=== PATIENT | female | born 1950 | race Caucasian/White ===

== ENCOUNTER 2016-11-02 01:59 | Inpatient (IN) | payer MEDICARE, OTHER ==
[~2016-11-02 01:59] MED LIST: KETO0.02 EACH EYE; LEVO.05 PO; METF500T PO; MONT5CHW5 CHEW
[2016-11-02] MEDS ORDERED: ONDANSETRON HCL 4 MG/2 ML VIAL IVP PRN ×2 (04:30→11:30)
[2016-11-02] MEDS ORDERED: MORPHINE SULFATE 4 MG/ML INJ IV PUSH PRN ×3 (04:30→11:30)
[2016-11-02] MEDS ORDERED: ACETAMINOPHEN/HYDROcodone 325 MG/10 MG TAB PO PRN (04:30)
[2016-11-02] MEDS ORDERED: LACTULOSE SYRUP 20 GM/30 ML CUP PO PRN ×2 (04:30→11:30)
[2016-11-02] MEDS ORDERED: ACETAMINOPHEN/HYDROcodone 325 MG/5 MG TAB PO PRN (04:30)
[2016-11-02] MEDS ORDERED: NALOXONE HCL 0.4 MG/ML AMP IV PUSH PRN ×2 (04:30→11:30)
[2016-11-02] MEDS ORDERED: DEXTROSE 50% IN WATER 50 ML VIAL(D50) IV PRN ×2 (04:30→11:30)
[2016-11-02] MEDS ORDERED: MAGNESIUM HYDROXIDE SUSP 30 ML CUP PO PRN ×2 (04:30→11:30)
[2016-11-02] MEDS ORDERED: GLUCAGON 1 MG/ML VIAL OTHER PRN ×2 (04:30→11:30)
[2016-11-02 05:00] VITALS: BP 134/99; PULSE 79; RESP 18; TEMP 98.6; O2SAT 97
[2016-11-02] MEDS ORDERED: CETI-1 PO (05:27)
[2016-11-02] MEDS ORDERED: MONT10TA4 PO (05:27)
[2016-11-02] MEDS ORDERED: PRIL20TA2 PO ×2 (05:27→05:28)
--- NOTE | 2016-11-02 05:33 | PD ---
Physical Exam Time Seen by Provider: 05:33 Narrative Please refer to previous providers documentation of bradycardia chest frontal patient's current visit. Data Data Last Documented VS Vital Signs Date Time Temp Pulse Resp B/P (MAP) Pulse Ox O2 Delivery O2 Flow Rate FiO2 11/02/16 05:00 98.6 79 18 134/99 (111) 97 Room Air Orders Orders Admit To Inpatient (11/02/16 ) Vital Signs (Adult) Q4H (11/02/16 04:29) Activity Oob Ad Hien (11/02/16 04:29) Diet Npo (11/02/16 Breakfast) Sodium Chlor 0.9% 1000 Ml Inj (Ns 1000 M (11/02/16 04:29) Sodium Chloride 0.9% Flush (Ns Flush) (11/02/16 09:00) Ondansetron Inj (Zofran Inj) (11/02/16 04:30) Basic Metabolic Panel (Bmp) (11/03/16 06:00) Complete Blood Count With Diff (11/03/16 06:00) Pt Request For Service (11/02/16 04:29) Scd Bilateral/Knee High DENISE.BID (11/02/16 04:29) Naloxone Inj (Narcan Inj) (11/02/16 04:30) Magnesium Hydroxide Liq (Milk Of Magnesi (11/02/16 04:30) Lactulose Liq (Lactulose Liq) (11/02/16 04:30) Inpatient Certification (11/02/16 ) Acetamin-Hydrocod 325-5 Mg ([place] 5-325 (11/02/16 04:30) Acetamin-Hydrocod 325-10 Mg ([place] 10-32 (11/02/16 04:30) Morphine Inj (Morphine Inj) (11/02/16 04:30) Bedside Glucose DENISE.CSUGAR (11/02/16 04:29) Blood Glucose Goal (Criteria) (11/02/16 04:29) Hypoglycemia 70 Mg/Dl Or < (11/02/16 04:29) Notify Dr: Other (11/02/16 04:29) Dextrose 50% In Koby (Vial) Inj (D50w (Vi (11/02/16 04:30) Glucagon Inj (Glucagon Inj) (11/02/16 04:30) Insulin Aspart Supplemtl Scale (Novolog (11/02/16 08:00) Admit Order (Ed Use Only) (11/02/16 05:22) Consult Orthopedic (11/02/16 05:23) (Hub Use Only)Inp Phy Cons/Ref (11/02/16 ) MDM Medical Record Reviewed: Yes Supervised Visit with MALATHI: No Differential Diagnosis Fracture versus contusion versus dislocation Narrative Course 66-year-old female, transferred from [facility] for admission to medicine for orthopedic intervention on her left proximal humeral fracture. Abrasion appears without distress. At this time she states her pain is controlled. She is in a sling. The extremity remains neurovascularly intact. Sylvester Edouardan made to Dr. Hensley to inform her the patient is here. Patient is admitted to her service. Diagnosis Primary Impression: Proximal humeral fracture Qualified Codes: S42.202A - Unspecified fracture of upper end of left humerus , initial encounter for closed fracture Admitting Information Admitting Physician Requests: Admit Condition: Stable Trixie Stephens Nov 02, 2016 05:33
[2016-11-02] MEDS: SODIUM CHLOR 0.9% 1000 ML INJ 1,000 ML IV SCH ×2 (05:59→13:20)
[2016-11-02] MEDS ORDERED: VANCOMYCIN HCL 1000 MG VIAL ONE (06:54)
[2016-11-02] MEDS ORDERED: ceFAZolin 2 GM PREMIX 50 ML ONE (06:54)
[2016-11-02] MEDS ORDERED: GENTAMICIN SULFATE 80 MG/2 ML VIAL ONE (06:54)
[2016-11-02] MEDS ORDERED: SODIUM CHLOR 0.9% 250 ML INJ 250 ML ONE (06:56)
[2016-11-02] MEDS ORDERED: INSULIN ASPART SUPPLEMENTAL SCALE SQ SCH (08:00)
[2016-11-02] MEDS ORDERED: SODIUM CHLORIDE 0.9% FLUSH 10 ML FLUSH IV FLUSH SCH ×2 (09:00→21:00)
[2016-11-02] MEDS ORDERED: FAMOTIDINE 20 MG/2 ML VIAL ONE (09:02)
[2016-11-02] MEDS ORDERED: ACETAMINOPHEN 1000 MG/100 ML 100 ML IV ONE (09:02)
--- NOTE | 2016-11-02 11:21 | HHI.HP ---
HPI Service [facility] Primary [facility] Physician Non-Staff MANPRET Admission Diagnosis LUE fracture Diagnoses: (1) Proximal humeral fracture Diagnosis: Principal (2) GERD (gastroesophageal reflux disease) Diagnosis: Secondary (3) Hiatal hernia Diagnosis: Secondary (4) Fibromyalgia Diagnosis: Secondary (5) Fall Diagnosis: Principal (6) Diabetes Diagnosis: Secondary (7) Hypothyroidism Diagnosis: Secondary Chief Complaint: Fall Travel History International Travel<30 Days: No Contact w/Intl Traveler <30 Da: No Traveled to Known Affected Are: No History of Present Illness Patient is a 66-year-old female. Who was walking by her house and tripped on a curb in the street following forward hard onto her left shoulder and upper arm area. Patient states that she felt a pop sensation in her left upper arm. She was not able to get up due to pain in her arm. Hit her head on the left side but she denied any loss of consciousness Found to have a left humeral fracture and will undergo surgery later today with orthopedic surgery Therefore patient was transferred from the [place] emergency room to the main hospital here at [place] Review of Systems Constitutional: DENIES: Diaphoretic episodes, Fatigue, Fever, Weight gain, Weight loss, Chills, Dizziness, Change in appetite Endocrine: DENIES: Abnorml menstrual pattern, Heat/cold intolerance, Polydipsia , Polyuria Eyes: DENIES: Blurred vision, Diplopia, Eye inflammation, Eye pain, Vision loss Ears, nose, mouth, throat: DENIES: Tinnitus, Hearing loss, Vertigo, Nasal discharge Respiratory: DENIES: Apneas, Cough, Snoring, Wheezing Cardiovascular: DENIES: Chest pain, Palpitations, Syncope, Dyspnea on Exertion Gastrointestinal: DENIES: Abdominal pain, Black stools, Bloody stools Genitourinary: DENIES: Abnormal vaginal bleeding, Dysmenorrhea Musculoskeletal: COMPLAINS OF: Joint pain, Muscle aches, DENIES: Stiffness, Joint Swelling, Back pain Integumentary: DENIES: Abnormal pigmentation, Pruritus, Rash, Nail changes Hematologic/lymphatic: DENIES: Bruising, Lymphadenopathy Immunologic/allergic: DENIES: Eczema, Urticaria Neurologic: DENIES: Abnormal gait, Headache, Localized weakness, Paresthesias, Seizures, Speech Problems, Tremor Psychiatric: DENIES: Anxiety, Confusion, Mood changes, Depression Past Family Social History Past Medical History Fibromyalgia treated with trigger point injections no narcotics GERD Hiatal hernia History of ruptured ovarian cyst Diabetes Asthma allergies hypothyroidism Past Surgical History History of breast biopsy negative benign History of exploratory surgery for a ruptured ovarian cyst Bilateral bunionectomies Reported Medications Reported Meds & Active Scripts Active Reported Prilosec (Omeprazole Magnesium) 20 Mg Tab 20 Mg PO DAILY Prilosec (Omeprazole Magnesium) 20 Mg Tab 20 Mg PO Zyrtec (Cetirizine HCl) 10 Mg Tablet 10 Mg PO DAILY Montelukast (Montelukast Sodium) 10 Mg Tab 10 Mg PO HS Metformin (Metformin HCl) 500 Mg Tab 500 Mg PO BIDPC With meals ZyrTEC Itchy Eye Opth Drops (Ketotifen Opth Drops) 0.025% Drops 1 Drop EACH EYE BID PRN Synthroid (Levothyroxine Sodium) 50 Mcg Tab 50 Mcg PO DAILY Allergies: Coded Allergies: No Known Allergies (Unverified , 11/01/16) Active Ordered Medications Current Medications Sodium Chloride 1,000 ml @ 100 mls/hr Q10H IV Last administered on 11/02/16t 05:59; Start 11/02/16 at 04:29 Sodium Chloride (NS Flush) 2 ml BID IV FLUSH ; Start 11/02/16 at 09:00 Ondansetron HCl (Zofran Inj) 4 mg Q6H PRN IVP NAUSEA OR VOMITING; Start at 04:30 Naloxone HCl (Narcan Inj) 0.4 mg UNSCH PRN IV PUSH SEE LABEL COMMENTS; Start at 04:30 Magnesium Hydroxide (Milk Of Magnesia Liq) 30 ml Q12H PRN PO MILD - MODERATE CONSTIPATION; Start 11/02/16 at 04:30 Lactulose (Lactulose Liq) 30 ml DAILY PRN PO SEVERE CONSITIPATION; Start at 04:30 Acetaminophen/ Hydrocodone Bitart ([place] 5-325 Mg) 1 tab Q6H PRN PO pain 1-5; Start 11/02/16 at 04:30 Acetaminophen/ Hydrocodone Bitart ([place] 10-325 Mg) 1 tab Q6H PRN PO pain 6-10 ; Start 11/02/16 at 04:30 Morphine Sulfate (Morphine Inj) 2 mg Q3H PRN IV PUSH breakthrough Last administered on 11/02/16t 05:57; Start 11/02/16 at 04:30 Dextrose (D50w (Vial) Inj) 50 ml UNSCH PRN IV HYPOGLYCEMIA-SEE COMMENTS; Start 11/02/16 at 04:30 Glucagon (Glucagon Inj) 1 mg UNSCH PRN OTHER HYPOGLYCEMIA-SEE COMMENTS; Start 11/02/16 at 04:30 Insulin Aspart (NovoLOG SUPPLEMENTAL SCALE) 1 ACHS SLIDING SCALE SQ ; Start at 08:00 Vancomycin HCl (Vancomycin Inj) 1,000 mg STK-MED ONCE .ROUTE ; Start 11/02/16 at 06:54; Stop 11/02/16 at 06:55; Status DC Gentamicin Sulfate (Gentamicin Inj) 240 mg STK-MED ONCE .ROUTE ; Start 11/02/16 at 06:54; Stop 11/02/16 at 06:55; Status DC Cefazolin Sodium/ Dextrose 50 ml @ As Directed STK-MED ONCE .ROUTE ; Start 11/02 at 06:54; Stop 11/02/16 at 06:55; Status DC Sodium Chloride 250 ml @ As Directed STK-MED ONCE .ROUTE ; Start 11/02/16 at 06 :56; Stop 11/02/16 at 06:57; Status DC Acetaminophen 100 ml @ As Directed STK-MED ONCE IV ; Start 11/02/16 at 09:02; Stop 11/02/16 at 09:03; Status DC Famotidine (Pepcid Inj) 20 mg STK-MED ONCE .ROUTE ; Start 11/02/16 at 09:02; Stop 11/02/16 at 09:03; Status DC Family History Hypertension hypothyroidism diabetes Social History Denies any tobacco alcohol or illicits Physical Exam Vital Signs Vital Signs Date Time Temp Pulse Resp B/P (MAP) Pulse Ox O2 Delivery O2 Flow Rate FiO2 11/02/16 05:00 98.6 79 18 134/99 (111) 97 Room Air Physical Exam GENERAL: This is a well-nourished, well-developed patient, in no apparent distress. SKIN: No rashes, ecchymoses or lesions. Cool and dry. HEAD: Atraumatic. Normocephalic. No temporal or scalp tenderness. EYES: Pupils equal round and reactive. Extraocular motions intact. No scleral icterus. No injection or drainage. ENT: Nose without bleeding, purulent drainage or septal hematoma. Throat without erythema, tonsillar hypertrophy or exudate. Uvula midline. Airway patent. Tongue is midline NECK: Trachea midline. No JVD or lymphadenopathy. Supple, nontender, no meningeal signs. CARDIOVASCULAR: Regular rate and rhythm without murmurs, gallops, or rubs. S1 and S2 no S3-S4 no heave or thrill or rub or gallop RESPIRATORY: Clear to auscultation. Breath sounds equal bilaterally. No wheezes , rales, or rhonchi. GASTROINTESTINAL: Abdomen soft, non-tender, nondistended. No hepato-splenomegaly , or palpable masses. No guarding. MUSCULOSKELETAL: Extremities without clubbing, cyanosis, or edema. No joint tenderness, effusion, or edema noted. No calf tenderness. Negative Homans sign bilaterally. Left upper extremity is in a sling decreased range of motion secondary to pain NEUROLOGICAL: Awake and alert. Cranial nerves II through XII intact. Motor and sensory grossly within normal limits. Five out of 5 muscle strength in all muscle groups. Normal speech. Insight and judgment is good Mood and behaviors appropriate Laboratory Sodium 142 potassium is 4.7 chloride is 105 carbon dioxide 28.0 anion gap is 9 BUN is 14 creatinine 0.90 estimated GFR 63 random glucose is 110 calcium is 9.0 total bilirubin 0.2 AST is 30 ALT 31 alk phosphatase 90 total protein 7.1 albumin is 3.3 White blood cell count is 14.0 Hemoglobin is 12.9 Hematocrit is 39.5 Platelet count is 260 Imaging Chest x-ray shows acute left proximal humeral fracture No acute disease Left elbow shows no acute abnormality limited study. Cervical spine CT shows no fracture or dislocation multilevel degenerative changes Head CT shows normal examination Left knee x-ray shows unremarkable limited examination of the left knee Left shoulder x-ray shows a left proximal humeral fracture which shows an acute comminuted fracture involving the proximal humerus this extends through the greater tuberosity There is approximately 1 cm of separation of this fracture fragment from the remaining proximal humerus Caprini VTE Risk Assessment Caprini VTE Risk Assessment: Mod/High Risk (score >= 2) Caprini Risk Assessment Model Point Value = 1 Point Value = 2 Point Value = 3 Point Value = 5 Age 41-60 Minor surgery BMI > 25 kg/m2 Swollen legs Varicose veins or History of unexplained or recurrent spontaneous Oral contraceptives or hormone replacement Sepsis (< 1 month) Serious lung disease, including pneumonia (< 1 month) Abnormal pulmonary function Acute myocardial infarction Congestive heart failure (< 1 month) History of inflammatory bowel disease Medical patient at bed rest Age 61-74 Arthroscopic surgery Major open surgery (> 45 min) Laparoscopic surgery (> 45 min) Malignancy Confined to bed (> 72 hours) Immobilizing plaster cast Central venous access Age >= 75 History of VTE Family history of VTE Factor V Leiden Prothrombin [id number] Lupus anticoagulant Anticardiolipin antibodies Elevated serum homocysteine Heparin-induced thrombocytopenia Other congenital or acquired thrombophilia Stroke (< 1 month) Elective arthroplasty Hip, pelvis, or leg fracture Acute spinal cord injury (< 1 month) Prophylaxis Regimen Total Risk Factor Score Risk Level Prophylaxis Regimen 0-1 Low Early ambulation 2 Moderate Order ONE of the following: *Sequential Compression Device (SCD) *Heparin 5000 units SQ BID 3-4 Higher Order ONE of the following medications: *Heparin 5000 units SQ TID *Enoxaparin/Lovenox 40 mg SQ daily (WT < 150 kg, CrCl > 30 mL/min) *Enoxaparin/Lovenox 30 mg SQ daily (WT < 150 kg, CrCl > 10-29 mL/min) *Enoxaparin/Lovenox 30 mg SQ BID (WT < 150 kg, CrCl > 30 mL/min) AND/OR *Sequential Compression Device (SCD) 5 or more Highest Order ONE of the following medications: *Heparin 5000 units SQ TID (Preferred with Epidurals) *Enoxaparin/Lovenox 40 mg SQ daily (WT < 150 kg, CrCl > 30 mL/min) *Enoxaparin/Lovenox 30 mg SQ daily (WT < 150 kg, CrCl > 10-29 mL/min) *Enoxaparin/Lovenox 30 mg SQ BID (WT < 150 kg, CrCl > 30 mL/min) AND *Sequential Compression Device (SCD) Assessment and Plan Problem List: (1) Proximal humeral fracture ICD Code: S42.209A - Unspecified fracture of upper end of unspecified humerus, initial encounter for closed fracture Status: Acute (2) Hiatal hernia ICD Code: K44.9 - Diaphragmatic hernia without obstruction or gangrene (3) Fibromyalgia ICD Code: M79.7 - Fibromyalgia (4) GERD (gastroesophageal reflux disease) ICD Code: K21.9 - Gastro-esophageal reflux disease without esophagitis (5) Fall ICD Code: W19.XXXA - Unspecified fall, initial encounter (6) Diabetes ICD Code: E11.9 - Type 2 diabetes mellitus without complications (7) Hypothyroidism ICD Code: E03.9 - Hypothyroidism, unspecified Assessment and Plan Left proximal humeral comminuted fracture will require surgery with orthopedics scheduled later today GERD and hiatal hernia continue on PPI Diabetes mellitus continue on her Glucophage and Accu-Cheks before meals and at bedtime with sliding scale coverage Fibromyalgia pain control as needed and anxiety medication as needed Hypothyroidism continue Synthroid Asthma continue on her home medications Pain control as needed Benadryl as needed Will need physical therapy and occupational therapy. Continue on DVT and GI prophylaxis Code Status Full code Discussed Condition With Patient and RN's Physician Certification 2 Midnight Certification Type: Admission for Inpatient Services Order for Inpatient Services The services are ordered in accordance with Medicare regulations or non- Medicare payer requirements, as applicable. In the case of services not specified as inpatient-only, they are appropriately provided as inpatient services in accordance with the 2-midnight benchmark. Estimated LOS (days): 2 2 days is the estimated time the patient will need to remain in the hospital, assuming treatment plan goals are met and no additional complications. Post-Hospital Plan: Not yet determined Problem Qualifiers (1) Proximal humeral fracture: Qualified Codes: S42.202A - Unspecified fracture of upper end of left humerus, initial encounter for closed fracture Yohannes Cordova DO Nov 02, 2016 11:21
[2016-11-02] MEDS ORDERED: ACETAMINOPHEN 325 MG TAB PO PRN ×2 (11:30)
[2016-11-02] MEDS ORDERED: SODIUM CHLORIDE 0.9% FLUSH 10 ML FLUSH IV FLUSH PRN (11:30)
[2016-11-02] MEDS ORDERED: PROCHLORPERAZINE 25 MG SUPP RECTAL PRN (11:30)
[2016-11-02] MEDS ORDERED: oxyCODONE/ACETAMINOPHEN 5 MG/325 MG TAB PO PRN (11:30)
[2016-11-02] MEDS ORDERED: ZOLPIDEM TARTRATE 5 MG TAB PO PRN (11:30)
[2016-11-02] MEDS ORDERED: BISACODYL 10 MG SUPP RECTAL PRN (11:30)
[2016-11-02] MEDS ORDERED: SENNOSIDES 8.6 MG TAB PO PRN (11:30)
[2016-11-02] MEDS ORDERED: oxyCODONE/ACETAMINOPHEN 10 MG/325 MG TAB PO PRN (11:30)
[2016-11-02] MEDS ORDERED: NEOSTIGMINE 3 MG/3 ML SYR IV ONE (12:00)
[2016-11-02] MEDS ORDERED: DEXAMETHASONE SOD PHOS 4 MG/ML VIAL IV ONE (12:00)
[2016-11-02] MEDS ORDERED: ONDANSETRON HCL 4 MG/2 ML VIAL IV PUSH ONE (12:00)
[2016-11-02] MEDS ORDERED: NORMOSOL R INJ 1,000 ML IV ONE (12:00)
[2016-11-02] MEDS ORDERED: MIDAZOLAM HCL 2 MG/2 ML VIAL IV ONE (12:00)
[2016-11-02] MEDS ORDERED: GLYCOPYRROLATE 0.2 MG/ML VIAL IV ONE (12:00)
[2016-11-02] MEDS ORDERED: PROPOFOL 200 MG/20 ML AMP IV ONE (12:00)
--- NOTE | 2016-11-02 12:17 | MB ---
cc: KILEY QUISPE DATE OF ADMISSION DATE OF CONSULTATION 11/02/2016 REASON FOR CONSULTATION Left proximal humerus fracture. HISTORY Nimo is a 66-year-old female who had a fall. She was leaving a friend's house after dinner. She lost her balance. She started stumbling forehead. She subsequently landed with her left shoulder against her car. She had immediate left shoulder pain. Her pain is worse with movement. She presented to the [facility]. X-rays revealed a comminuted left proximal humerus fracture. She is currently awake and alert in the emergency department. Her only complaint is her left shoulder. She does have small abrasions and a small bruise on her anterior knee. The pain is worse with movement. She denies visual changes, dizziness, syncope or loss of consciousness. PAST MEDICAL HISTORY ILLNESSES 1. Fibromyalgia. 2. Reflux. 3. Hiatal hernia. 4. Hypothyroidism. 5. Diabetes. ALLERGIES No known drug allergies. MEDICATIONS 1. Metformin. 2. Montelukast. 3. Zyrtec. 4. Synthroid. SOCIAL HISTORY The patient denies alcohol tobacco or drug use. FAMILY HISTORY Noncontributory. REVIEW OF SYSTEMS The patient denies headache, visual changes, neck pain, chest pain, shortness of breath, abdominal pain, nausea, vomiting, recent weight loss or numbness or tingling of extremities. She complains of left shoulder pain. The pain is worse with movement. PHYSICAL EXAMINATION GENERAL: The patient is a pleasant 66-year-old female in no acute distress. She is awake and alert. She is alert and oriented x3. VITAL SIGNS: Temperature 98.7, pulse 80, respirations 16, blood pressure 172/97, O2 sat is 97% on room air. HEAD: The patient is normocephalic. Pupils are equal. NECK: Soft, nontender. Trachea is midline. ABDOMEN: Soft, nontender, nondistended. EXTREMITIES: Examination of the left arm reveals mild swelling around her shoulder. Skin is intact. She has minimal tenderness in her elbow, wrist or fingers. Sensation is intact in radial, ulnar and median nerve distributions. She has good capillary refill in all fingers. Examination of right arm reveals no pain with shoulder, elbow or wrist motion. Skin is intact. Radial pulses palpable. Sensation is intact. Examination of the bilateral lower extremities reveals no significant pain with hip, knee or ankle motion. She does have superficial abrasions on her anterior knees. She has a small bruise on her left knee. Sensation is intact to both feet. Dorsalis pedis pulses are palpable. X-RAYS X-rays of the left shoulder are reviewed. X-rays reveal a partially displaced, three part proximal humerus fracture. IMPRESSION 1. Hypothyroidism. 2. Diabetes. 3. Left proximal humerus fracture. PLAN The treatment options were discussed with the patient including surgical and nonsurgical options. I discussed the risks and benefits of each, the risks of surgery including bleeding, infection, injury to arteries, nerves and blood vessels, avascular necrosis, need for shoulder replacement, painful hardware, shoulder stiffness, loss of motion as well as medical complications including blood clot, stroke, heart attack and were discussed. All questions were answered. I will plan on surgery today. A mid-level provider in my office (nurse practitioner or physician election assistant) may see this patient on follow-up visits and continue to implement the objectives of this plan including: Starting or adjusting medications, injections , cast application, orthotics, brace application, physical therapy, radiological studies (including x-ray, MRI, CT, ultrasound, bone scan), vascular studies, neurologic studies, specialist consultation, and proceeding with surgical management, as appropriate. MD OMARI Drake/VINI /11:21 AM /11:41 AM RAIN
[2016-11-02] MEDS ORDERED: SODIUM CHLORIDE 0.9% FLUSH 5 ML FLUSH IVF PRN (12:30)
--- NOTE | 2016-11-02 12:30 | PD.OP ---
cc: Km Irving MD Operative Report Date of Surgery: Nov 02, 2016 Preoperative Diagnosis: Displaced left proximal humerus fracture Postoperative Diagnosis: Procedure: Open reduction internal fixation left proximal humerus fracture Anesthesia: Gen. Surgeon: Km Irving Tableau Architect(s): LEO Pinto PA-C The surgical procedure was assisted by my physician desk assistant. My P.A. presence was necessary throughout this case for the manipulation and positioning of the surgical extremity. My P.A. was assisting me throughout the duration of this procedure. The skill set of a physician desk assistant was medically necessary to complete this procedure. During the surgical case the optometric tech was working at the back table and the physician desk assistant was directly assisting me. Operation and Findings: Patient was seen and evaluated preoperatively. Patient was found to have a displaced proximal humerus fracture. The risks and benefits of surgical and nonsurgical options were discussed in detail and informed consent was obtained for surgery. Patient was brought to the operating room and placed on or table. IV sedation and GETA were administered by anesthesiologist. Antibiotics were given prior to incision. Operative arm and shoulder were prepped with alcohol followed by Hibiclens and draped usual sterile fashion. Timeout procedure was performed. Procedure began with a 5 inch incision over the anterior shoulder. Cephalic vein was identified. A deltopectoral approach was utilized. The fracture was now visualized. Soft tissue was retracted. A #5 FiberWire suture was placed into the rotator rotator cuff and greater tuberosity. A second #5 FiberWire suture was placed into the lesser tuberosity and subscapularis tendon. Attention was now turned to reduction. Gentle traction was applied. The humeral shaft was reduced to the humeral head. Fracture was manipulated to achieve excellent reduction. Multiplanar fluoroscopy confirmed well aligned fracture. Multiple K wires were used to hold provisional fixation. A Synthes proximal humerus plate was selected. Plate was provisionally held in place K wires. 3.5 cortical screws were used to compress plate to bone. Fluoroscopy confirmed appropriate plate placement and fracture reduction. Multiple locking screws were now placed in the humeral head. Screws were predrilled and premeasured for appropriate length. Care was taken not to penetrate the articular surface. Additional screws were placed in the humeral shaft. The FiberWire suture were passed through the holes of the plate and sutured to the plate for additional stability. Final fluoroscopy revealed well aligned fracture with well-placed hardware. Wound was thoroughly irrigated. Fascia was closed with #1 Vicryl, subcutaneous tissues closed with 3-0 Vicryl, and skin was closed with hamilton. Sterile dressings were applied. Patient was placed into a sling. Patient was awakened and transferred to recovery in stable condition. Needle and sponge counts were correct. Km Irving MD Nov 02, 2016 12:29
[2016-11-02] MEDS ORDERED: HYDR-3583 PO (12:55)
[2016-11-02] MEDS ORDERED: ERGO1CAP30 PO (12:55)
[2016-11-02] MEDS ORDERED: CALCTAB19 PO (12:55)
[2016-11-02] MEDS ORDERED: DO NOT ADM ANY ANTICOAGULANT DRUGS PRN (12:55)
[2016-11-02] MEDS ORDERED: OLOPATADINE HCL 0.1% OPHT SOLN 5 ML BTL EACH EYE PRN (13:00)
--- NOTE | 2016-11-02 13:04 | RADRPT ---
EXAM DATE/TIME: 11/02/2016 12:17 [facility] COMPARISON: SHOULDER LEFT LTD (2VWS), November 01, 2016, 23:36. INDICATIONS : Post-op ORIF left proximal humerus fracture. MEDICAL HISTORY : None. SURGICAL HISTORY : None. ENCOUNTER: Subsequent ACUITY: 2 days PAIN SCORE: Non-responsive. LOCATION: Left upper extremity FINDINGS: 7 spot fluoroscopic images obtained in the operating room during a procedure demonstrate placement of a lateral humeral side plate with multiple interlocking screws. There is improved anatomic alignment . CONCLUSION: Improved alignment following left proximal humerus ORIF. Tariq Yi MD on November 02, 2016 at 13:01 Board Certified Radiologist. This report was verified electronically.
[2016-11-02] MEDS ORDERED: *morphine SULFATE 8 MG/ML PERIprocedure ONLY ONE (13:06)
[2016-11-02] MEDS: INSULIN ASPART SUPPLEMENTAL SCALE SQ SCH ×3 (13:30→21:00)
[2016-11-02] MEDS ORDERED: ERGOCALCIFEROL (VIT D2) 50,000 UNIT CAP PO SCH (14:00)
[2016-11-02] MEDS: ACETAMINOPHEN/HYDROcodone 325 MG/10 MG TAB PO PRN ×2 (14:56→20:51)
[2016-11-02 16:00] VITALS: BP 124/76; PULSE 72; RESP 18; TEMP 95.9; O2SAT 100
[2016-11-02] MEDS: CALCIUM/VITAMIN D 250 MG/125 U TAB PO SCH ×2 (16:47→21:07)
[2016-11-02] MEDS: metFORMIN HCL 500 MG TAB PO SCH (16:47)
[2016-11-02 20:00] VITALS: BP 132/69; PULSE 68; RESP 17; TEMP 97.6; O2SAT 93
[2016-11-02] MEDS: ceFAZolin 2 GM PREMIX 50 ML IV SCH (20:50)
[2016-11-02] MEDS: MONTELUKAST SODIUM 10 MG TAB PO SCH (20:51)
[2016-11-02] MEDS: DOCUSATE SODIUM 50 MG/SENNA 8.6 MG TAB PO SCH (20:52)
[2016-11-02] MEDS: SODIUM CHLORIDE 0.9% FLUSH 5 ML FLUSH IVF SCH (20:53)
[2016-11-02] MEDS: MORPHINE SULFATE 4 MG/ML INJ IV PUSH PRN (22:43)
[2016-11-03] VITALS (8 sets, daily range): BP systolic 111–135; BP diastolic 60–66; PULSE 61–108; RESP 16–18; TEMP 96.9–100.3; O2SAT 91–96
[2016-11-03] MEDS: ACETAMINOPHEN/HYDROcodone 325 MG/10 MG TAB PO PRN ×5 (00:57→20:56)
[2016-11-03] MEDS: SODIUM CHLOR 0.9% 1000 ML INJ 1,000 ML IV SCH ×3 (00:58→20:29)
[2016-11-03] MEDS: ceFAZolin 2 GM PREMIX 50 ML IV SCH ×2 (04:21→10:53)
[2016-11-03] MEDS: LEVOTHYROXINE SODIUM 50 MCG TAB PO SCH (04:21)
[2016-11-03] MEDS: MORPHINE SULFATE 4 MG/ML INJ IV PUSH PRN ×2 (06:36→19:12)
--- NOTE | 2016-11-03 06:43 | PD.ORT.PN ---
Subjective Subjective Remarks Pain controlled. Doing well overnight Objective Vitals Vital Signs Date Time Temp Pulse Resp B/P (MAP) Pulse Ox O2 Delivery O2 Flow Rate FiO2 11/03/16 04:00 96.9 80 17 119/63 (81) 94 11/03/16 00:00 97.2 61 17 128/64 (85) 94 11/02/16 20:40 Nasal Cannula 2.00 11/02/16 20:00 97.6 68 17 132/69 (90) 93 11/02/16 16:00 95.9 72 18 124/76 (92) 100 11/02/16 13:30 97.9 79 12 145/76 (99) 100 Nasal Cannula 2 11/02/16 13:15 75 12 141/69 (93) 99 Nasal Cannula 2 11/02/16 13:00 77 14 174/83 (113) 99 Nasal Cannula 2 11/02/16 12:57 98.5 76 14 170/81 (110) 99 Nasal Cannula 2 I/O 11/02/16 11/02/16 11/02/16 11/03/16 11/03/16 11/03/16 07:00 15:00 23:00 07:00 15:00 23:00 Intake Total 1100 ml 530 ml 240 ml Output Total 50 ml 1750 ml Balance 1050 ml 530 ml -1510 ml Intake Oral 480 ml 240 ml IV Total 50 ml Other 1100 ml Output Urine Total 1750 ml Estimated Blood Loss 50 ml Imaging Last 72 hours Impressions Shoulder X-Ray 11/02/16 0000 Signed Impressions: Service Date/Time: Wednesday, November 02, 2016 12:17 - CONCLUSION: Improved alignment following left proximal humerus ORIF. Tariq Yi MD Objective Remarks Left upper extremity: Clean dry dressings intact. Sling and swath in place. Distally intact sensation over the radial ulnar and median nerve distributions with good capillary refills. Full extension and flexion of all fingers Assessment & Plan Assessment and Plan Left proximal humerus fracture ORIF POD 1 Nonweightbearing left upper extremity Sling and swath at all times except for physical therapy. PT to work on pendulum swings only also education for them to do on her own Case management for home health dressing changes Discharged home today Follow-up with Dr. Irving or PA in 2 weeks Jose Diaz Jr. Nov 03, 2016 06:43
--- NOTE | 2016-11-03 06:44 | HHI.FF ---
Face to Face Verification Diagnosis: (1) Proximal humeral fracture Occupational Therapy Left UE Weight Bearing: Non WB Left UE Range of Motion: Pendular Nursing Dressing Changes: Daily dressing change, Xeroform, Coverderm/Primapore I have seen patient Nimo Coleman on 11/03/16. My clinical findings support the need for the requested home health care services because: Limited ability to care for self I certify that my clinical findings support that this patient is homebound because: Post-op weakness Jose Diaz Jr. Nov 03, 2016 06:44
[2016-11-03 07:54] LABS: AUTOMATED NEUTROPHIL # 7.8 TH/MM3 (1.8-7.7); BASOPHIL # 0.1 TH/MM3 (0-0.2); BASOPHIL % 0.4 % (0.0-2.0); EOSINOPHIL # 0.1 TH/MM3 (0-0.4); EOSINOPHIL % 0.8 % (0.0-4.0); HEMATOCRIT 32.1 % (35.0-46.0); HEMO FLAGS DIFF FINAL; LYMPH % 24.2 % (9.0-44.0); LYMPHOCYTE # 2.8 TH/MM3 (1.0-4.8); MEAN CORPUSCULAR HEMOGLOBIN 28.2 PG (27.0-34.0); MEAN CORPUSCULAR HGB CONC 33.1 % (32.0-36.0); MONO % 7.7 % (0.0-8.0); NEUT % 66.9 % (16.0-70.0); PLATELET COUNT 198 TH/MM3 (150-450); RED BLOOD COUNT 3.77 MIL/MM3 (4.00-5.30); RED CELL DISTRIBUTION WIDTH 13.8 % (11.6-17.2); WHITE BLOOD COUNT 11.6 TH/MM3 (4.0-11.0)
[2016-11-03] MEDS: INSULIN ASPART SUPPLEMENTAL SCALE SQ SCH ×4 (08:00→21:00)
[2016-11-03] MEDS: PANTOPRAZOLE SOD 20 MG DELAYED RELEASE TAB PO SCH (08:15)
[2016-11-03] MEDS: CHOLECALCIFEROL (VIT D3) 1000 UNIT TAB PO SCH (08:15)
[2016-11-03] MEDS: CALCIUM/VITAMIN D 250 MG/125 U TAB PO SCH ×3 (08:15→17:38)
[2016-11-03] MEDS: DOCUSATE SODIUM 50 MG/SENNA 8.6 MG TAB PO SCH ×2 (08:15→20:57)
[2016-11-03] MEDS: SODIUM CHLORIDE 0.9% FLUSH 5 ML FLUSH IVF SCH ×2 (08:15→20:56)
[2016-11-03] MEDS: CETIRIZINE HCL 10 MG TAB PO SCH (08:15)
[2016-11-03] MEDS: metFORMIN HCL 500 MG TAB PO SCH ×2 (08:15→17:38)
[2016-11-03 08:26] LABS: ANION GAP 5 MEQ/L (5-15); AST (GOT) 22 U/L (15-37); BICARBONATE 28.5 MEQ/L (21.0-32.0); BLOOD UREA NITROGEN 12 MG/DL (7-18); CHLORIDE 101 MEQ/L (98-107); GLOMERULAR FILTRATION RATE 71 ML/MIN (>89); POTASSIUM 4.3 MEQ/L (3.5-5.1); SODIUM (NA) 134 MEQ/L (136-145)
[2016-11-03 08:27] LABS: ALT (GPT) 24 U/L (10-53)
[2016-11-03 08:36] LABS: ALKALINE PHOSPHATASE 78 U/L (45-117); FREE T4 1.28 NG/DL (0.76-1.46); TOTAL BILIRUBIN ADULT 0.3 MG/DL (0.2-1.0)
--- NOTE | 2016-11-03 11:27 | HHI.PR ---
Subjective Remarks Patient is a 66-year-old female. Who was walking by her house and tripped on a curb in the street following forward hard onto her left shoulder and upper arm area. Patient states that she felt a pop sensation in her left upper arm. She was not able to get up due to pain in her arm. Hit her head on the left side but she denied any loss of consciousness Found to have a left humeral fracture and will undergo surgery later today with orthopedic surgery Therefore patient was transferred from the [place] emergency room to the main hospital here at [place] 11-03 patient had surgery on her left humerus yesterday Having nausea and vomiting today. We'll monitor today. We'll hopefully feel better and can hopefully be discharged later today or tomorrow A.m. labs Objective Vitals Vital Signs Date Time Temp Pulse Resp B/P (MAP) Pulse Ox O2 Delivery O2 Flow Rate FiO2 11/03/16 08:00 98.2 84 18 111/63 (79) 92 11/03/16 04:00 96.9 80 17 119/63 (81) 94 11/03/16 00:00 97.2 61 17 128/64 (85) 94 11/02/16 20:40 Nasal Cannula 2.00 11/02/16 20:00 97.6 68 17 132/69 (90) 93 11/02/16 16:00 95.9 72 18 124/76 (92) 100 11/02/16 13:30 97.9 79 12 145/76 (99) 100 Nasal Cannula 2 11/02/16 13:15 75 12 141/69 (93) 99 Nasal Cannula 2 11/02/16 13:00 77 14 174/83 (113) 99 Nasal Cannula 2 11/02/16 12:57 98.5 76 14 170/81 (110) 99 Nasal Cannula 2 I/O 11/02/16 11/02/16 11/02/16 11/03/16 11/03/16 11/03/16 07:00 15:00 23:00 07:00 15:00 23:00 Intake Total 1100 ml 530 ml 1041 ml Output Total 50 ml 1750 ml Balance 1050 ml 530 ml -709 ml Intake Oral 480 ml 240 ml IV Total 50 ml 801 ml Other 1100 ml Output Urine Total 1750 ml Estimated Blood Loss 50 ml Result Diagram: 11/03/16 0649 11/03/1649 Other Results Item Value Date Time White Blood Count 14.0 TH/MM3 H 11/02/16 0330 Platelet Count 260 TH/MM3 11/02/16 0330 Hemoglobin 12.9 GM/DL 11/02/16 0330 Hematocrit 39.5 % 11/02/16 0330 Sodium Level 142 MEQ/L 11/02/16 0330 Potassium Level 4.7 MEQ/L 11/02/16 0330 Chloride Level 105 MEQ/L 11/02/16 0330 Carbon Dioxide Level 28.0 MEQ/L 11/02/16 0330 Anion Gap 9 MEQ/L 11/02/16 0330 Blood Urea Nitrogen 14 MG/DL 11/02/16 0330 Creatinine 0.90 MG/DL 11/02/16 0330 Estimat Glomerular Filtration Rate 63 ML/MIN L 11/02/16 0330 Random Glucose 110 MG/DL H 11/02/16 0330 Calcium Level 9.0 MG/DL 11/02/16 0330 Total Bilirubin 0.2 MG/DL 11/02/16 0330 Aspartate Amino Transf (AST/SGOT) 30 U/L 11/02/16 0330 Alanine Aminotransferase (ALT/SGPT) 31 U/L 11/02/16 0330 Alkaline Phosphatase 90 U/L 11/02/16 0330 Total Protein 7.1 GM/DL 11/02/16 0330 Albumin 3.3 GM/DL L 11/02/16 0330 Imaging Last Impressions Shoulder X-Ray 11/02/16 0000 Signed Impressions: Service Date/Time: Wednesday, November 02, 2016 12:17 - CONCLUSION: Improved alignment following left proximal humerus ORIF. Tariq Yi MD Objective Remarks GENERAL: Awake alert and oriented talkative and cooperative SKIN: Warm and dry. HEAD: Atraumatic. Normocephalic. EYES: Pupils equal and round. No scleral icterus. No injection or drainage. Extraocular muscles are grossly intact ENT: No nasal bleeding or discharge. Mucous membranes pink and moist. Tongue is midline NECK: Trachea midline. No JVD. Neck is supple CARDIOVASCULAR: Regular rate and rhythm. S1-S2 no S3-S4 no heave or thrill or rub or gallop RESPIRATORY: No accessory muscle use. Clear to auscultation. Breath sounds equal bilaterally. GASTROINTESTINAL: Abdomen soft, non-tender, nondistended. Hepatic and splenic margins not palpable. MUSCULOSKELETAL: Extremities without clubbing, cyanosis, or edema. No obvious deformities. Left upper extremity in sling decreased range of motion secondary to pain NEUROLOGICAL: Awake and alert. No obvious cranial nerve deficits. Motor grossly within normal limits. Five out of 5 muscle strength in the arms and legs. Normal speech. Left upper extremity in sling PSYCHIATRIC: Appropriate mood and affect; insight and judgment normal. Procedures Date of Surgery: Nov 02, 2016 Preoperative Diagnosis: Displaced left proximal humerus fracture Postoperative Diagnosis: Procedure: Open reduction internal fixation left proximal humerus fracture Anesthesia: Gen. Surgeon: Km Irving Medications and IVs Current Medications Sodium Chloride 1,000 ml @ 100 mls/hr Q10H IV Last administered on 11/03/16t 00:58; Start 11/02/16 at 04:29 Sodium Chloride (NS Flush) 2 ml BID IV FLUSH ; Start 11/02/16 at 09:00; Stop at 12:02; Status DC Ondansetron HCl (Zofran Inj) 4 mg Q6H PRN IVP NAUSEA OR VOMITING; Start at 04:30; Stop 11/02/16 at 12:11; Status DC Naloxone HCl (Narcan Inj) 0.4 mg UNSCH PRN IV PUSH SEE LABEL COMMENTS; Start at 04:30; Stop 11/02/16 at 12:15; Status DC Magnesium Hydroxide (Milk Of Magnesia Liq) 30 ml Q12H PRN PO MILD - MODERATE CONSTIPATION; Start 11/02/16 at 04:30; Stop 11/02/16 at 12:13; Status DC Lactulose (Lactulose Liq) 30 ml DAILY PRN PO SEVERE CONSITIPATION; Start at 04:30; Stop 11/02/16 at 12:20; Status DC Acetaminophen/ Hydrocodone Bitart ([place] 5-325 Mg) 1 tab Q6H PRN PO pain 1-5; Start 11/02/16 at 04:30; Stop 11/02/16 at 12:06; Status DC Acetaminophen/ Hydrocodone Bitart ([place] 10-325 Mg) 1 tab Q6H PRN PO pain 6-10 ; Start 11/02/16 at 04:30; Stop 11/02/16 at 12:06; Status DC Morphine Sulfate (Morphine Inj) 2 mg Q3H PRN IV PUSH breakthrough Last administered on 11/02/16 05:57; Start 11/02/16 at 04:30; Stop 11/02/16 at 13:25 ; Status DC Dextrose (D50w (Vial) Inj) 50 ml UNSCH PRN IV HYPOGLYCEMIA-SEE COMMENTS; Start 11/02/16 at 04:30; Stop 11/02/16 at 12:06; Status DC Glucagon (Glucagon Inj) 1 mg UNSCH PRN OTHER HYPOGLYCEMIA-SEE COMMENTS; Start 11/02/16 at 04:30; Stop 11/02/16 at 12:06; Status DC Insulin Aspart (NovoLOG SUPPLEMENTAL SCALE) 1 ACHS SLIDING SCALE SQ ; Start at 08:00; Stop 11/02/16 at 12:06; Status DC Vancomycin HCl (Vancomycin Inj) 1,000 mg STK-MED ONCE .ROUTE Last administered on 11/02/16 11:32; Start 11/02/16 at 06:54; Stop 11/02/16 at 06:55; Status DC Gentamicin Sulfate (Gentamicin Inj) 240 mg STK-MED ONCE .ROUTE Last administered on 11/02/16 11:37; Start 11/02/16 at 06:54; Stop 11/02/16 at 06:55 ; Status DC Cefazolin Sodium/ Dextrose 50 ml @ As Directed STK-MED ONCE .ROUTE Last administered on 11/02/16 11:15; Start 11/02/16 at 06:54; Stop 11/02/16 at 06:55 ; Status DC Sodium Chloride 250 ml @ As Directed STK-MED ONCE .ROUTE ; Start 11/02/16 at 06 :56; Stop 11/02/16 at 06:57; Status DC Acetaminophen 100 ml @ As Directed STK-MED ONCE IV ; Start 11/02/16 at 09:02; Stop 11/02/16 at 09:03; Status DC Famotidine (Pepcid Inj) 20 mg STK-MED ONCE .ROUTE ; Start 11/02/16 at 09:02; Stop 11/02/16 at 09:03; Status DC Cetirizine HCl (ZyrTEC) 10 mg DAILY PO Last administered on 11/03/16 08:15; Start 11/03/16 at 09:00 Levothyroxine Sodium (Synthroid) 50 mcg DAILY@0600 PO Last administered on 11/03 04:21; Start 11/03/16 at 06:00 Metformin HCl (Glucophage) 500 mg BIDPC PO Last administered on 11/03/16 08:15 ; Start 11/02/16 at 18:00 Montelukast Sodium (Singulair) 10 mg HS PO Last administered on 11/02/16 20:51 ; Start 11/02/16 at 21:00 Olopatadine HCl (Patanol 0.1% Opth) 1 drop BID PRN EACH EYE ALLERGIES; Start at 13:00 Pantoprazole Sodium (Protonix) 20 mg DAILY PO Last administered on 11/03/16 08 :15; Start 11/03/16 at 09:00 Dextrose (D50w (Vial) Inj) 50 ml UNSCH PRN IV HYPOGLYCEMIA-SEE COMMENTS; Start 11/02/16 at 11:30 Glucagon (Glucagon Inj) 1 mg UNSCH PRN OTHER HYPOGLYCEMIA-SEE COMMENTS; Start 11/02/16 at 11:30 Insulin Aspart (NovoLOG SUPPLEMENTAL SCALE) 1 ACHS SLIDING SCALE SQ ; Start at 12:00 Sodium Chloride (NS Flush) 2 ml UNSCH PRN IV FLUSH FLUSH AFTER USING IV ACCESS ; Start 11/02/16 at 11:30; Stop 11/02/16 at 13:22; Status DC Sodium Chloride (NS Flush) 2 ml BID IV FLUSH ; Start 11/02/16 at 21:00; Stop at 21:00; Status DC Acetaminophen (Tylenol) 650 mg Q4H PRN PO TEMP > 100.4; Start 11/02/16 at 11:30 Ondansetron HCl (Zofran Inj) 4 mg Q6H PRN IVP NAUSEA OR VOMITING Last administered on 11/03/16 08:15; Start 11/02/16 at 11:30 Prochlorperazine (Compazine Supp) 25 mg Q12H PRN RECTAL NAUSEA OR VOMITING; Start 11/02/16 at 11:30 Zolpidem Tartrate (Ambien) 5 mg HS PRN PO INSOMNIA; Start 11/02/16 at 11:30 Acetaminophen (Tylenol) 650 mg Q6H PRN PO PAIN SCALE 1 TO 2; Start 11/02/16 at 11:30 Oxycodone/ Acetaminophen (Percocet 5-325 Mg) 1 tab Q6H PRN PO PAIN SCALE 3 TO 5; Start 11/02/16 at 11:30; Stop 11/02/16 at 13:24; Status DC Oxycodone/ Acetaminophen (Percocet 10-325 Mg) 1 tab Q6H PRN PO PAIN SCALE 6 TO 10; Start 11/02/16 at 11:30; Stop 11/02/16 at 13:24; Status DC Morphine Sulfate (Morphine Inj) 2 mg Q3H PRN IV PUSH Pain 3-5; if unable to take PO; Start 11/02/16 at 11:30 Morphine Sulfate (Morphine Inj) 4 mg Q3H PRN IV PUSH Pain 6-10;if unable to take PO Last administered on 11/02/16 16:47; Start 11/02/16 at 11:30 Naloxone HCl (Narcan Inj) 0.4 mg UNSCH PRN IV PUSH SEE LABEL COMMENTS; Start at 11:30 Senna/Docusate Sodium (Zenia-Colace) 1 tab BID PO Last administered on 08:15; Start 11/02/16 at 21:00 Magnesium Hydroxide (Milk Of Magnesia Liq) 30 ml Q12H PRN PO MILD - MODERATE CONSTIPATION; Start 11/02/16 at 11:30 Sennosides (Senokot) 17.2 mg Q12H PRN PO MODERATE - SEVERE CONSTIPATION; Start 11/02/16 at 11:30 Bisacodyl (Dulcolax Supp) 10 mg DAILY PRN RECTAL SEVERE CONSITIPATION; Start at 11:30 Lactulose (Lactulose Liq) 30 ml DAILY PRN PO SEVERE CONSITIPATION; Start at 11:30 IV Flush (NS Flush) 2 ml UNSCH PRN IVF FLUSH AFTER USING IV ACCESS; Start 11/02 at 12:30 IV Flush (NS Flush) 2 ml BID IVF Last administered on 11/03/16 08:15; Start at 21:00 Cefazolin Sodium/ Dextrose 50 ml @ 100 mls/hr Q8H IV Last administered on 11/03 10:53; Start 11/02/16 at 19:00; Stop 11/03/16 at 11:29 Acetaminophen/ Hydrocodone Bitart ([place] 10-325 Mg) 1 tab Q3H PRN PO pain 3<10 Last administered on 11/03/16 04:23; Start 11/02/16 at 12:30 Calcium/Vitamin D (Oscal-D 250-125) 250 mg TID PO Last administered on 08:15; Start 11/02/16 at 13:00 Morphine Sulfate (Morphine Inj) 4 mg Q3H PRN IV PUSH break thru pain Last administered on 11/03/16 06:36; Start 11/02/16 at 12:30 Ergocalciferol (Drisdol) 50,000 units Q7D PO Last administered on 11/02/16 20: 53; Start 11/02/16 at 14:00 Cholecalciferol (Vitamin D3) 1,000 units DAILY PO Last administered on 08:15; Start 11/03/16 at 09:00 Morphine Sulfate (*morphine INJ PERIprocedure ONLY) 8 mg STK-MED ONCE .ROUTE Last administered on 11/02/16 13:08; Start 11/02/16 at 13:06; Stop 11/02/16 at 13:07; Status DC Miscellaneous Information ALL NURSING DEPARTME... UNSCH PRN .XX SEE LABEL COMMENTS; Start 11/02/16 at 12:55; Stop 11/03/16 at 12:54 Pneumococcal Polyvalent Vaccine (Pneumovax-23 Inj) 25 mcg ONCE ONCE IM ; Start 11/04/16 at 10:00; Stop 11/04/16 at 10:01 Influenza Virus Vaccine (Flu (Quadrivalent) Vaccine Inj) 0.5 ml ONCE ONCE IM ; Start 11/04/16 at 10:00; Stop 11/04/16 at 10:01 Diphenhydramine HCl (Benadryl) 25 mg Q6H PRN PO itching; Start 11/03/16 at 11: 15; Status UNV Urinary Catheter: No Vascular Central Line Catheter: No A/P Problem List: (1) Proximal humeral fracture ICD Code: S42.209A - Unspecified fracture of upper end of unspecified humerus, initial encounter for closed fracture Status: Acute (2) Hiatal hernia ICD Code: K44.9 - Diaphragmatic hernia without obstruction or gangrene (3) Fibromyalgia ICD Code: M79.7 - Fibromyalgia (4) GERD (gastroesophageal reflux disease) ICD Code: K21.9 - Gastro-esophageal reflux disease without esophagitis (5) Fall ICD Code: W19.XXXA - Unspecified fall, initial encounter (6) Diabetes ICD Code: E11.9 - Type 2 diabetes mellitus without complications (7) Hypothyroidism ICD Code: E03.9 - Hypothyroidism, unspecified Assessment and Plan Left proximal humeral comminuted fracture will require surgery with orthopedics scheduled later today status post surgery yesterday with Dr. Irving GERD and hiatal hernia continue on PPI Diabetes mellitus continue on her Glucophage and Accu-Cheks before meals and at bedtime with sliding scale coverage Fibromyalgia pain control as needed and anxiety medication as needed Hypothyroidism continue Synthroid Asthma continue on her home medications Pain control as needed Benadryl as needed Pain control Medications for nausea and vomiting A.m. labs Hopefully discharge tomorrow Will need physical therapy and occupational therapy. Continue on DVT and GI prophylaxis Problem Qualifiers (1) Proximal humeral fracture: Qualified Codes: S42.202A - Unspecified fracture of upper end of left humerus, initial encounter for closed fracture Yohannes Cordova DO Nov 03, 2016 11:27
[2016-11-03] MEDS: diphenhydrAMINE HCL 25 MG CAP PO PRN ×2 (13:00→19:12)
[2016-11-03 18:03] LABS: HEMOGLOBIN A1b 1.7 %; HEMOGLOBIN Ao 85.5 %; HEMOGLOBIN LA1C 1.9 %; HEMOGLOBIN P3 3.7 %
[2016-11-03] MEDS: MONTELUKAST SODIUM 10 MG TAB PO SCH (20:57)
[2016-11-04] VITALS (7 sets, daily range): BP systolic 115–128; BP diastolic 62–68; PULSE 101–115; RESP 17–18; TEMP 97.6–100.8; O2SAT 92–96
[2016-11-04] MEDS: ACETAMINOPHEN/HYDROcodone 325 MG/10 MG TAB PO PRN ×2 (00:16→07:24)
[2016-11-04] MEDS: diphenhydrAMINE HCL 25 MG CAP PO PRN ×2 (01:25→07:24)
[2016-11-04] MEDS: MORPHINE SULFATE 4 MG/ML INJ IV PUSH PRN (01:26)
[2016-11-04] MEDS: LEVOTHYROXINE SODIUM 50 MCG TAB PO SCH (04:41)
[2016-11-04] MEDS: SODIUM CHLOR 0.9% 1000 ML INJ 1,000 ML IV SCH (04:43)
[2016-11-04 07:12] LABS: AUTOMATED NEUTROPHIL # 7.2 TH/MM3 (1.8-7.7); BASOPHIL % 0.3 % (0.0-2.0); EOSINOPHIL # 0.1 TH/MM3 (0-0.4); EOSINOPHIL % 0.8 % (0.0-4.0); HEMATOCRIT 31.5 % (35.0-46.0); HEMO FLAGS DIFF FINAL; LYMPH % 21.7 % (9.0-44.0); LYMPHOCYTE # 2.3 TH/MM3 (1.0-4.8); MEAN CELL VOLUME 85.1 FL (80.0-100.0); MEAN CORPUSCULAR HEMOGLOBIN 27.6 PG (27.0-34.0); MEAN CORPUSCULAR HGB CONC 32.4 % (32.0-36.0); MONO % 9.7 % (0.0-8.0); NEUT % 67.5 % (16.0-70.0); PLATELET COUNT 198 TH/MM3 (150-450); RED CELL DISTRIBUTION WIDTH 13.6 % (11.6-17.2); WHITE BLOOD COUNT 10.6 TH/MM3 (4.0-11.0)
[2016-11-04 07:32] LABS: ANION GAP 6 MEQ/L (5-15); AST (GOT) 19 U/L (15-37); BLOOD UREA NITROGEN 10 MG/DL (7-18); CHLORIDE 97 MEQ/L (98-107); GLOMERULAR FILTRATION RATE 85 ML/MIN (>89); MAGNESIUM 1.9 MG/DL (1.5-2.5); POTASSIUM 4.1 MEQ/L (3.5-5.1); SODIUM (NA) 132 MEQ/L (136-145)
[2016-11-04 07:34] LABS: ALT (GPT) 23 U/L (10-53)
[2016-11-04 07:35] LABS: ALKALINE PHOSPHATASE 73 U/L (45-117); TOTAL BILIRUBIN ADULT 0.5 MG/DL (0.2-1.0)
[2016-11-04] MEDS: INSULIN ASPART SUPPLEMENTAL SCALE SQ SCH ×2 (08:00→12:00)
[2016-11-04] MEDS: DOCUSATE SODIUM 50 MG/SENNA 8.6 MG TAB PO SCH (08:16)
[2016-11-04] MEDS: metFORMIN HCL 500 MG TAB PO SCH (08:17)
[2016-11-04] MEDS: CETIRIZINE HCL 10 MG TAB PO SCH (08:17)
[2016-11-04] MEDS: CHOLECALCIFEROL (VIT D3) 1000 UNIT TAB PO SCH (08:17)
[2016-11-04] MEDS: CALCIUM/VITAMIN D 250 MG/125 U TAB PO SCH (08:17)
[2016-11-04] MEDS: PANTOPRAZOLE SOD 20 MG DELAYED RELEASE TAB PO SCH (08:17)
[2016-11-04] MEDS: SODIUM CHLORIDE 0.9% FLUSH 5 ML FLUSH IVF SCH (08:17)
[2016-11-04] MEDS ORDERED: PNEUMOCOCCAL POLYVALENT INJ 25 MCG/0.5 ML SYR IM ONE (10:00)
[2016-11-04] MEDS ORDERED: INFLUENZA VIRUS VACCINE (QUADRIVALENT) 0.5 ML SYR IM ONE (10:00)
--- NOTE | 2016-11-04 11:03 | HHI.PR ---
Subjective Remarks Patient is a 66-year-old female. Who was walking by her house and tripped on a curb in the street following forward hard onto her left shoulder and upper arm area. Patient states that she felt a pop sensation in her left upper arm. She was not able to get up due to pain in her arm. Hit her head on the left side but she denied any loss of consciousness Found to have a left humeral fracture and will undergo surgery later today with orthopedic surgery Therefore patient was transferred from the [facility] emergency room to the main hospital here at [place] 11-03 patient had surgery on her left humerus yesterday Having nausea and vomiting today. We'll monitor today. We'll hopefully feel better and can hopefully be discharged later today or tomorrow A.m. labs 11-04 patient has had some fevers. Which are being controlled by Tylenol. Denies any dysuria. Has not been using incentive spirometry. We'll make sure that she uses that at discharge Wants to be discharged to home today will discharge to home with home health care Objective Vitals Vital Signs Date Time Temp Pulse Resp B/P (MAP) Pulse Ox O2 Delivery O2 Flow Rate FiO2 11/04/16 09:43 97.8 11/04/16 08:00 100.7 108 18 115/62 (79) 96 11/04/16 07:41 92 Nasal Cannula 3.00 11/04/16 04:00 99.8 11/04/16 01:24 99.5 11/04/16 00:00 100.8 115 17 128/63 (84) 93 11/03/16 20:00 100.3 108 17 135/61 (85) 93 11/03/16 17:56 91 21 11/03/16 16:00 99.6 98 16 117/60 (79) 91 11/03/16 12:00 99.1 82 18 116/66 (83) 96 I/O 11/03/16 11/03/16 11/03/16 11/04/16 11/04/16 11/04/16 07:00 15:00 23:00 07:00 15:00 23:00 Intake Total 1041 ml 660 ml 240 ml Output Total 1750 ml 1400 ml 1000 ml Balance -709 ml -740 ml -760 ml Intake Oral 240 ml 660 ml 240 ml IV Total 801 ml Output Urine Total 1750 ml 1400 ml 1000 ml # Bowel Movements 0 Result Diagram: 11/04/16 0535 11/04/16 0535 Other Results Laboratory Tests Test 11/03/16 06:49 11/04/16 05:35 White Blood Count 11.6 TH/MM3 10.6 TH/MM3 Red Blood Count 3.77 MIL/MM3 3.70 MIL/MM3 Hemoglobin 10.6 GM/DL 10.2 GM/DL Hematocrit 32.1 % 31.5 % Mean Corpuscular Volume 85.0 FL 85.1 FL Mean Corpuscular Hemoglobin 28.2 PG 27.6 PG Mean Corpuscular Hemoglobin Concent 33.1 % 32.4 % Red Cell Distribution Width 13.8 % 13.6 % Platelet Count 198 TH/MM3 198 TH/MM3 Mean Platelet Volume 9.6 FL 9.2 FL Neutrophils (%) (Auto) 66.9 % 67.5 % Lymphocytes (%) (Auto) 24.2 % 21.7 % Monocytes (%) (Auto) 7.7 % 9.7 % Eosinophils (%) (Auto) 0.8 % 0.8 % Basophils (%) (Auto) 0.4 % 0.3 % Neutrophils # (Auto) 7.8 TH/MM3 7.2 TH/MM3 Lymphocytes # (Auto) 2.8 TH/MM3 2.3 TH/MM3 Monocytes # (Auto) 0.9 TH/MM3 1.0 TH/MM3 Eosinophils # (Auto) 0.1 TH/MM3 0.1 TH/MM3 Basophils # (Auto) 0.1 TH/MM3 0.0 TH/MM3 CBC Comment DIFF FINAL DIFF FINAL Differential Comment Blood Urea Nitrogen 12 MG/DL 10 MG/DL Creatinine 0.81 MG/DL 0.69 MG/DL Random Glucose 89 MG/DL 91 MG/DL Total Protein 6.2 GM/DL 6.0 GM/DL Albumin 3.0 GM/DL 2.8 GM/DL Calcium Level 8.5 MG/DL 8.3 MG/DL Phosphorus Level 3.2 MG/DL 2.6 MG/DL Magnesium Level 2.0 MG/DL 1.9 MG/DL Alkaline Phosphatase 78 U/L 73 U/L Aspartate Amino Transf (AST/SGOT) 22 U/L 19 U/L Alanine Aminotransferase (ALT/SGPT) 24 U/L 23 U/L Total Bilirubin 0.3 MG/DL 0.5 MG/DL Sodium Level 134 MEQ/L 132 MEQ/L Potassium Level 4.3 MEQ/L 4.1 MEQ/L Chloride Level 101 MEQ/L 97 MEQ/L Carbon Dioxide Level 28.5 MEQ/L 29.0 MEQ/L Anion Gap 5 MEQ/L 6 MEQ/L Estimat Glomerular Filtration Rate 71 ML/MIN 85 ML/MIN Hemoglobin A1c 5.6 % Free Thyroxine 1.28 NG/DL Thyroid Stimulating Hormone 3rd Gen 1.450 uIU/ML Imaging Last Impressions Shoulder X-Ray 11/02/16 0000 Signed Impressions: Service Date/Time: Wednesday, November 02, 2016 12:17 - CONCLUSION: Improved alignment following left proximal humerus ORIF. Tariq Yi MD Objective Remarks GENERAL: Awake alert and oriented talkative and cooperative SKIN: Warm and dry. HEAD: Atraumatic. Normocephalic. EYES: Pupils equal and round. No scleral icterus. No injection or drainage. Extraocular muscles are grossly intact ENT: No nasal bleeding or discharge. Mucous membranes pink and moist. Tongue is midline NECK: Trachea midline. No JVD. Neck is supple CARDIOVASCULAR: Regular rate and rhythm. S1-S2 no S3-S4 no heave or thrill or rub or gallop RESPIRATORY: No accessory muscle use. Clear to auscultation. Breath sounds equal bilaterally. GASTROINTESTINAL: Abdomen soft, non-tender, nondistended. Hepatic and splenic margins not palpable. MUSCULOSKELETAL: Extremities without clubbing, cyanosis, or edema. No obvious deformities. Left upper extremity in sling decreased range of motion secondary to pain NEUROLOGICAL: Awake and alert. No obvious cranial nerve deficits. Motor grossly within normal limits. Five out of 5 muscle strength in the arms and legs. Normal speech. Left upper extremity in sling PSYCHIATRIC: Appropriate mood and affect; insight and judgment normal. Procedures Date of Surgery: Nov 02, 2016 Preoperative Diagnosis: Displaced left proximal humerus fracture Postoperative Diagnosis: Procedure: Open reduction internal fixation left proximal humerus fracture Anesthesia: Gen. Surgeon: Km Irving Medications and IVs Current Medications Sodium Chloride 1,000 ml @ 100 mls/hr Q10H IV Last administered on 11/03/16t 00:58; Start 11/02/16 at 04:29 Sodium Chloride (NS Flush) 2 ml BID IV FLUSH ; Start 11/02/16 at 09:00; Stop at 12:02; Status DC Ondansetron HCl (Zofran Inj) 4 mg Q6H PRN IVP NAUSEA OR VOMITING; Start at 04:30; Stop 11/02/16 at 12:11; Status DC Naloxone HCl (Narcan Inj) 0.4 mg UNSCH PRN IV PUSH SEE LABEL COMMENTS; Start at 04:30; Stop 11/02/16 at 12:15; Status DC Magnesium Hydroxide (Milk Of Magnesia Liq) 30 ml Q12H PRN PO MILD - MODERATE CONSTIPATION; Start 11/02/16 at 04:30; Stop 11/02/16 at 12:13; Status DC Lactulose (Lactulose Liq) 30 ml DAILY PRN PO SEVERE CONSITIPATION; Start at 04:30; Stop 11/02/16 at 12:20; Status DC Acetaminophen/ Hydrocodone Bitart ([place] 5-325 Mg) 1 tab Q6H PRN PO pain 1-5; Start 11/02/16 at 04:30; Stop 11/02/16 at 12:06; Status DC Acetaminophen/ Hydrocodone Bitart ([place] 10-325 Mg) 1 tab Q6H PRN PO pain 6-10 ; Start 11/02/16 at 04:30; Stop 11/02/16 at 12:06; Status DC Morphine Sulfate (Morphine Inj) 2 mg Q3H PRN IV PUSH breakthrough Last administered on 11/02/16 05:57; Start 11/02/16 at 04:30; Stop 11/02/16 at 13:25 ; Status DC Dextrose (D50w (Vial) Inj) 50 ml UNSCH PRN IV HYPOGLYCEMIA-SEE COMMENTS; Start 11/02/16 at 04:30; Stop 11/02/16 at 12:06; Status DC Glucagon (Glucagon Inj) 1 mg UNSCH PRN OTHER HYPOGLYCEMIA-SEE COMMENTS; Start 11/02/16 at 04:30; Stop 11/02/16 at 12:06; Status DC Insulin Aspart (NovoLOG SUPPLEMENTAL SCALE) 1 ACHS SLIDING SCALE SQ ; Start at 08:00; Stop 11/02/16 at 12:06; Status DC Vancomycin HCl (Vancomycin Inj) 1,000 mg STK-MED ONCE .ROUTE Last administered on 11/02/16t 11:32; Start 11/02/16 at 06:54; Stop 11/02/16 at 06:55; Status DC Gentamicin Sulfate (Gentamicin Inj) 240 mg STK-MED ONCE .ROUTE Last administered on 11/02/16 11:37; Start 11/02/16 at 06:54; Stop 11/02/16 at 06:55 ; Status DC Cefazolin Sodium/ Dextrose 50 ml @ As Directed STK-MED ONCE .ROUTE Last administered on 11/02/16 11:15; Start 11/02/16 at 06:54; Stop 11/02/16 at 06:55 ; Status DC Sodium Chloride 250 ml @ As Directed STK-MED ONCE .ROUTE ; Start 11/02/16 at 06 :56; Stop 11/02/16 at 06:57; Status DC Acetaminophen 100 ml @ As Directed STK-MED ONCE IV ; Start 11/02/16 at 09:02; Stop 11/02/16 at 09:03; Status DC Famotidine (Pepcid Inj) 20 mg STK-MED ONCE .ROUTE ; Start 11/02/16 at 09:02; Stop 11/02/16 at 09:03; Status DC Cetirizine HCl (ZyrTEC) 10 mg DAILY PO Last administered on 11/04/16 08:17; Start 11/03/16 at 09:00 Levothyroxine Sodium (Synthroid) 50 mcg DAILY@0600 PO Last administered on 11/04 04:41; Start 11/03/16 at 06:00 Metformin HCl (Glucophage) 500 mg BIDPC PO Last administered on 11/04/16 08:17 ; Start 11/02/16 at 18:00 Montelukast Sodium (Singulair) 10 mg HS PO Last administered on 11/03/16 20:57 ; Start 11/02/16 at 21:00 Olopatadine HCl (Patanol 0.1% Opth) 1 drop BID PRN EACH EYE ALLERGIES; Start at 13:00 Pantoprazole Sodium (Protonix) 20 mg DAILY PO Last administered on 11/04/16 08 :17; Start 11/03/16 at 09:00 Dextrose (D50w (Vial) Inj) 50 ml UNSCH PRN IV HYPOGLYCEMIA-SEE COMMENTS; Start 11/02/16 at 11:30 Glucagon (Glucagon Inj) 1 mg UNSCH PRN OTHER HYPOGLYCEMIA-SEE COMMENTS; Start 11/02/16 at 11:30 Insulin Aspart (NovoLOG SUPPLEMENTAL SCALE) 1 ACHS SLIDING SCALE SQ ; Start at 12:00 Sodium Chloride (NS Flush) 2 ml UNSCH PRN IV FLUSH FLUSH AFTER USING IV ACCESS ; Start 11/02/16 at 11:30; Stop 11/02/16 at 13:22; Status DC Sodium Chloride (NS Flush) 2 ml BID IV FLUSH ; Start 11/02/16 at 21:00; Stop at 21:00; Status DC Acetaminophen (Tylenol) 650 mg Q4H PRN PO TEMP > 100.4 Last administered on 08:17; Start 11/02/16 at 11:30 Ondansetron HCl (Zofran Inj) 4 mg Q6H PRN IVP NAUSEA OR VOMITING Last administered on 11/03/16 08:15; Start 11/02/16 at 11:30 Prochlorperazine (Compazine Supp) 25 mg Q12H PRN RECTAL NAUSEA OR VOMITING; Start 11/02/16 at 11:30 Zolpidem Tartrate (Ambien) 5 mg HS PRN PO INSOMNIA; Start 11/02/16 at 11:30 Acetaminophen (Tylenol) 650 mg Q6H PRN PO PAIN SCALE 1 TO 2; Start 11/02/16 at 11:30 Oxycodone/ Acetaminophen (Percocet 5-325 Mg) 1 tab Q6H PRN PO PAIN SCALE 3 TO 5; Start 11/02/16 at 11:30; Stop 11/02/16 at 13:24; Status DC Oxycodone/ Acetaminophen (Percocet 10-325 Mg) 1 tab Q6H PRN PO PAIN SCALE 6 TO 10; Start 11/02/16 at 11:30; Stop 11/02/16 at 13:24; Status DC Morphine Sulfate (Morphine Inj) 2 mg Q3H PRN IV PUSH Pain 3-5; if unable to take PO; Start 11/02/16 at 11:30 Morphine Sulfate (Morphine Inj) 4 mg Q3H PRN IV PUSH Pain 6-10;if unable to take PO Last administered on 11/02/16t 16:47; Start 11/02/16 at 11:30 Naloxone HCl (Narcan Inj) 0.4 mg UNSCH PRN IV PUSH SEE LABEL COMMENTS; Start at 11:30 Senna/Docusate Sodium (Zenia-Colace) 1 tab BID PO Last administered on 08:16; Start 11/02/16 at 21:00 Magnesium Hydroxide (Milk Of Magnesia Liq) 30 ml Q12H PRN PO MILD - MODERATE CONSTIPATION; Start 11/02/16 at 11:30 Sennosides (Senokot) 17.2 mg Q12H PRN PO MODERATE - SEVERE CONSTIPATION; Start 11/02/16 at 11:30 Bisacodyl (Dulcolax Supp) 10 mg DAILY PRN RECTAL SEVERE CONSITIPATION; Start at 11:30 Lactulose (Lactulose Liq) 30 ml DAILY PRN PO SEVERE CONSITIPATION; Start at 11:30 IV Flush (NS Flush) 2 ml UNSCH PRN IVF FLUSH AFTER USING IV ACCESS; Start 11/02 at 12:30 IV Flush (NS Flush) 2 ml BID IVF Last administered on 11/04/16 08:17; Start at 21:00 Cefazolin Sodium/ Dextrose 50 ml @ 100 mls/hr Q8H IV Last administered on 11/03 10:53; Start 11/02/16 at 19:00; Stop 11/03/16 at 11:29; Status DC Acetaminophen/ Hydrocodone Bitart ([place] 10-325 Mg) 1 tab Q3H PRN PO pain 3<10 Last administered on 11/04/16 07:24; Start 11/02/16 at 12:30 Calcium/Vitamin D (Oscal-D 250-125) 250 mg TID PO Last administered on 08:17; Start 11/02/16 at 13:00 Morphine Sulfate (Morphine Inj) 4 mg Q3H PRN IV PUSH break thru pain Last administered on 11/04/16 01:26; Start 11/02/16 at 12:30 Ergocalciferol (Drisdol) 50,000 units Q7D PO Last administered on 11/02/16 20: 53; Start 11/02/16 at 14:00 Cholecalciferol (Vitamin D3) 1,000 units DAILY PO Last administered on 08:17; Start 11/03/16 at 09:00 Morphine Sulfate (*morphine INJ PERIprocedure ONLY) 8 mg STK-MED ONCE .ROUTE Last administered on 11/02/16 13:08; Start 11/02/16 at 13:06; Stop 11/02/16 at 13:07; Status DC Miscellaneous Information ALL NURSING DEPARTME... UNSCH PRN .XX SEE LABEL COMMENTS; Start 11/02/16 at 12:55; Stop 11/03/16 at 12:54; Status DC Pneumococcal Polyvalent Vaccine (Pneumovax-23 Inj) 25 mcg ONCE ONCE IM ; Start 11/04/16 at 10:00; Stop 11/04/16 at 10:01; Status DC Influenza Virus Vaccine (Flu (Quadrivalent) Vaccine Inj) 0.5 ml ONCE ONCE IM ; Start 11/04/16 at 10:00; Stop 11/04/16 at 10:01; Status DC Diphenhydramine HCl (Benadryl) 25 mg Q6H PRN PO itching Last administered on 07:24; Start 11/03/16 at 12:00 Urinary Catheter: No Vascular Central Line Catheter: No A/P Problem List: (1) Proximal humeral fracture ICD Code: S42.209A - Unspecified fracture of upper end of unspecified humerus, initial encounter for closed fracture Status: Acute (2) Hiatal hernia ICD Code: K44.9 - Diaphragmatic hernia without obstruction or gangrene (3) Fibromyalgia ICD Code: M79.7 - Fibromyalgia (4) GERD (gastroesophageal reflux disease) ICD Code: K21.9 - Gastro-esophageal reflux disease without esophagitis (5) Fall ICD Code: W19.XXXA - Unspecified fall, initial encounter (6) Diabetes ICD Code: E11.9 - Type 2 diabetes mellitus without complications (7) Hypothyroidism ICD Code: E03.9 - Hypothyroidism, unspecified Assessment and Plan Left proximal humeral comminuted fracture will require surgery with orthopedics scheduled later today status post surgery yesterday with Dr. Irving GERD and hiatal hernia continue on PPI Diabetes mellitus continue on her Glucophage and Accu-Cheks before meals and at bedtime with sliding scale coverage Fibromyalgia pain control as needed and anxiety medication as needed Hypothyroidism continue Synthroid Asthma continue on her home medications Pain control as needed Benadryl as needed Pain control Medications for nausea and vomiting A.m. labs Hopefully discharge tomorrow Will need physical therapy and occupational therapy. Continue on DVT and GI prophylaxis Fever stable can be discharged Problem Qualifiers (1) Proximal humeral fracture: Qualified Codes: S42.202A - Unspecified fracture of upper end of left humerus, initial encounter for closed fracture Yohannes Cordova DO Nov 04, 2016 11:03
[2016-11-04] MEDS ORDERED: SENN1TAB PO (11:06)
--- NOTE | 2016-11-04 11:08 | HHI.FF ---
Face to Face Verification Diagnosis: (1) Fall (2) GERD (gastroesophageal reflux disease) (3) Hypothyroidism (4) Fibromyalgia (5) Diabetes (6) Hiatal hernia (7) Proximal humeral fracture Physical Therapy Order: Evaluate and Treat, Improve ambulation, Strength and gait training Occupational Therapy Order: Evaluate and Treat, Improve ADL, Gross motor coordination, Fine motor coordination Home Health Nursing Order: Medical education Wound care and dressing changes ( Daily dressing change, Xeroform, Coverderm/ Primapore) Home Health Aide Order: To Assist In: Bathing and personal care, graduate teaching assistant and meal prep I have seen patient Nimo Coleman on 11/04/16. My clinical findings support the need for the requested home health care services because: Deconditioned w/ increased weakness I certify that my clinical findings support that this patient is homebound because: Post-op weakness Yohannes Cordova DO Nov 04, 2016 11:08
--- NOTE | 2016-11-04 11:11 | HHI.DS ---
Discharge Summary Admission Date Nov 02, 2016 at 04:32 Discharge Date: Nov 04, 2016 Admitting Diagnosis LUE fracture (1) Proximal humeral fracture ICD Code: S42.209A - Unspecified fracture of upper end of unspecified humerus, initial encounter for closed fracture Diagnosis: Principal Status: Acute (2) Hiatal hernia ICD Code: K44.9 - Diaphragmatic hernia without obstruction or gangrene Diagnosis: Secondary (3) Fibromyalgia ICD Code: M79.7 - Fibromyalgia Diagnosis: Secondary (4) GERD (gastroesophageal reflux disease) ICD Code: K21.9 - Gastro-esophageal reflux disease without esophagitis Diagnosis: Secondary (5) Fall ICD Code: W19.XXXA - Unspecified fall, initial encounter Diagnosis: Principal (6) Diabetes ICD Code: E11.9 - Type 2 diabetes mellitus without complications Diagnosis: Secondary (7) Hypothyroidism ICD Code: E03.9 - Hypothyroidism, unspecified Diagnosis: Secondary Procedures Date of Surgery: Nov 02, 2016 Preoperative Diagnosis: Displaced left proximal humerus fracture Postoperative Diagnosis: Procedure: Open reduction internal fixation left proximal humerus fracture Anesthesia: Gen. Surgeon: Km Irving Brief History - From Admission Patient is a 66-year-old female. Who was walking by her house and tripped on a curb in the street following forward hard onto her left shoulder and upper arm area. Patient states that she felt a pop sensation in her left upper arm. She was not able to get up due to pain in her arm. Hit her head on the left side but she denied any loss of consciousness Found to have a left humeral fracture and will undergo surgery later today with orthopedic surgery Therefore patient was transferred from the [place] emergency room to the [facility] hospital here at [place] CBC/BMP: 11/04/16 0535 11/04/16 0535 Significant Findings Laboratory Tests Test 11/03/16 06:49 11/04/16 05:35 White Blood Count 11.6 TH/MM3 (4.0-11.0) Red Blood Count 3.77 MIL/MM3 (4.00-5.30) 3.70 MIL/MM3 (4.00-5.30) Hemoglobin 10.6 GM/DL (11.6-15.3) 10.2 GM/DL (11.6-15.3) Hematocrit 32.1 % (35.0-46.0) 31.5 % (35.0-46.0) Neutrophils # (Auto) 7.8 TH/MM3 (1.8-7.7) Total Protein 6.2 GM/DL (6.4-8.2) 6.0 GM/DL (6.4-8.2) Albumin 3.0 GM/DL (3.4-5.0) 2.8 GM/DL (3.4-5.0) Sodium Level 134 MEQ/L (136-145) 132 MEQ/L (136-145) Estimat Glomerular Filtration Rate 71 ML/MIN (>89) 85 ML/MIN (>89) Monocytes (%) (Auto) 9.7 % (0.0-8.0) Monocytes # (Auto) 1.0 TH/MM3 (0-0.9) Calcium Level 8.3 MG/DL (8.5-10.1) Chloride Level 97 MEQ/L (98-107) Imaging Last Impressions Shoulder X-Ray 11/02/16 0000 Signed Impressions: Service Date/Time: Wednesday, November 02, 2016 12:17 - CONCLUSION: Improved alignment following left proximal humerus ORIF. Tariq Yi MD PE at Discharge GENERAL: Awake alert and oriented talkative and cooperative SKIN: Warm and dry. HEAD: Atraumatic. Normocephalic. EYES: Pupils equal and round. No scleral icterus. No injection or drainage. Extraocular muscles are grossly intact ENT: No nasal bleeding or discharge. Mucous membranes pink and moist. Tongue is midline NECK: Trachea midline. No JVD. Neck is supple CARDIOVASCULAR: Regular rate and rhythm. S1-S2 no S3-S4 no heave or thrill or rub or gallop RESPIRATORY: No accessory muscle use. Clear to auscultation. Breath sounds equal bilaterally. GASTROINTESTINAL: Abdomen soft, non-tender, nondistended. Hepatic and splenic margins not palpable. MUSCULOSKELETAL: Extremities without clubbing, cyanosis, or edema. No obvious deformities. Left upper extremity in sling decreased range of motion secondary to pain NEUROLOGICAL: Awake and alert. No obvious cranial nerve deficits. Motor grossly within normal limits. Five out of 5 muscle strength in the arms and legs. Normal speech. Left upper extremity in sling PSYCHIATRIC: Appropriate mood and affect; insight and judgment normal. Hospital Course Patient came in the hospital. With the fall and injury to the left humerus. Patient underwent surgery with Dr. Irving Had nausea and vomiting yesterday. This is improved Has had some borderline fevers but it is now using her incentive spirometry when she had not been using it before Denies any urinary symptoms. Has been improved and wishes to be discharged to home We'll set up home health care Have discussed with patient and RN and case management as well as her Will discharge to home today Pt Condition on Discharge: Stable Discharge Disposition: Disch w/ Home Health Serv Discharge Time: <= 30 minutes Discharge Instructions DIET: Follow Instructions for: Heart Healthy Diet, Diabetic Diet Speech Therapy-Diet Recommends: Regular Activities you can perform: Weight Bearing as Handy Follow up Referrals: Orthopedics - 2 Weeks @ [facility] with Km Irving MD PCP Follow-up - 1 Week New Medications: Calcium Carbonate-Vitamin D (Calcium 600+D 200) 600-200 Mg-Unit Tab 1 TAB PO BID for Nutritional Supplement, #90 TAB 0 Refills Ergocalciferol (Ergocalciferol) 50,000 Unit Cap 05402 UNITS PO Q7D for Nutritional Supplement, #8 CAP Hydrocodone-Acetaminophen (Hydrocodone-Acetaminophen) 10-325 mg Tab 1 TAB PO Q4H PRN for PAIN, #60 TAB 0 Refills Sennosides-Docusate Sodium (Senna Plus 8.6-50 mg) 8.6 Mg-50 Mg Tab 2 TAB PO BID for Bowel Management, #120 TAB Continued Medications: Cetirizine HCl (Zyrtec) 10 Mg Tablet 10 MG PO DAILY for Allergies Ketotifen Opth Drops (ZyrTEC Itchy Eye Opth Drops) 0.025% Drops 1 DROP EACH EYE BID PRN for ALLERGIES, BOTTLE 0 Refills Levothyroxine (Synthroid) 50 Mcg Tab 50 MCG PO DAILY for Thyroid, #30 TAB 0 Refills Metformin (Metformin) 500 Mg Tab 500 MG PO BIDPC for Blood Sugar Management, #60 TAB 0 Refills With meals Montelukast (Montelukast) 10 Mg Tab 10 MG PO HS, #30 TAB 0 Refills Omeprazole Magnesium (Prilosec) 20 Mg Tab 20 MG PO DAILY Discontinued Medications: Omeprazole Magnesium (Prilosec) 20 Mg Tab 20 MG PO Yohannes Cordova DO Nov 04, 2016 11:11
== END 2016-11-04 13:38 | disposition home health service (06) | DRG 494 ==
LOC: NEDDLT 01:59 → NEDA 04:32 → N07A 14:03
PROVIDERS: ADMIT Hospitalist; ATTEND Hospitalist
PROC: 0PSD04Z Reposition Left Humeral Head with Internal Fixation Device, Open Approach (ICD-10-PCS; principal; 2016-11-02 10:58)
DX: S42.202A Unspecified fracture of upper end of left humerus, initial encounter for closed fracture (principal); E03.9 Hypothyroidism, unspecified; E11.9 Type 2 diabetes mellitus without complications; K21.9 Gastro-esophageal reflux disease without esophagitis; K44.9 Diaphragmatic hernia without obstruction or gangrene; M79.7 Fibromyalgia; W18.09XA Striking against other object with subsequent fall, initial encounter; Y93.01 Activity, walking, marching and hiking; Y92.008 Other place in unspecified non-institutional (private) residence as the place of occurrence of the external cause; J45.909 Unspecified asthma, uncomplicated; R11.2 Nausea with vomiting, unspecified; R50.9 Fever, unspecified
CPT/HCPCS: 70450; 71010; 72125; 73030; 73070; 73560; 76000; 80053; 82948; 83036; 83735; 84100; 84439; 84443; 85025; 93005; C1713; J0131; J0690; J1100; J1580; J2250; J2270; J2405; J2710; J3010; J3370; J7030; J7050